=== PATIENT | male | born 1955 | race Caucasian/White ===

== ENCOUNTER 2020-04-08 13:19 | Emergency (ER) | payer BC ==
[~2020-04-08] VITALS: Ht 193 cm; Wt 118.2 kg
[2020-04-08] MEDS ORDERED: epiNEPHrine 1 mg/ml inj SQ STA (13:28)
[2020-04-08] MEDS ORDERED: LORazepam 2 mg/ml vial IV ONE (13:30)
[2020-04-08] MEDS ORDERED: methylPREDNISolone sod succ 125mg/2ml vial IV ONE (13:30)
[2020-04-08] MEDS ORDERED: tranexamic acid 100mg/ml inj. IV ONE (13:30)
[2020-04-08] MEDS ORDERED: famotidine/PF 10 mg/ml inj IV ONE (13:30)
[2020-04-08] MEDS ORDERED: normal saline 1000ML IV soln IV ONE (13:30)
[2020-04-08 13:46] LABS: BASOPHILS # (AUTO) 0.1 X10'3 (0-0.2); BASOPHILS % (AUTO) 0.5 % (0-1); EOSINOPHILS # (AUTO) 0.1 X10'3 (0-0.9); EOSINOPHILS % (AUTO) 0.9 % (0-6); HEMATOCRIT 48.7 % (42.0-52.0); HEMOGLOBIN 16.4 g/dl (14.0-17.9); LYMPHOCYTES # (AUTO) 3.9 X10'3 (1.1-4.8); LYMPHOCYTES % (AUTO) 25.4 % (21-51); MEAN CORPUSCULAR HEMOGLOBIN 30.3 PG (27.0-31.0); MEAN CORPUSCULAR HGB CONC 33.7 g/dL (33.0-36.5); MEAN CORPUSCULAR VOLUME 89.8 FL (78-98); MEAN PLATELET VOLUME 7.5 FL (7.4-10.4); MONOCYTES # (AUTO) 0.9 X10'3 (0-0.9); MONOCYTES % (AUTO) 5.7 % (2-12); NEUTROPHILS # (AUTO) 10.4 X10'3 (1.8-7.7); NEUTROPHILS % (AUTO) 67.5 % (42-75); PLATELET COUNT 215 X10'3 (140-440); RED BLOOD COUNT 5.42 X10'6 (4.70-6.10); RED CELL DISTRIBUTION WIDTH 13.5 % (11.5-14.5); WHITE BLOOD COUNT 15.5 X10'3 (4.5-11.0)
[2020-04-08] MEDS: diphenhydrAMINE 50 mg/ml inj IV ONE ×2 (13:49→14:37)
[2020-04-08 13:57] LABS: ALANINE AMINOTRANSFERASE 45 U/L (12-78); ALBUMIN 4.1 G/DL (3.4-5.0); ALBUMIN/GLOBULIN RATIO 1.1 (1.1-1.5); ALKALINE PHOSPHATASE 83 IU/L (46-116); ANION GAP 13 (8-16); ASPARTATE AMINO TRANSFERASE 29 U/L (10-37); BILIRUBIN,TOTAL 0.5 MG/DL (0.1-1.0); BLOOD UREA NITROGEN 20 MG/DL (7-18); BUN/CREATININE RATIO 15.4 (5.4-32.0); CALCIUM 9.7 MG/DL (8.5-10.1); CHLORIDE 102 MMOL/L (99-107); GLUCOSE 203 MG/DL (70-104); POTASSIUM 3.4 MMOL/L (3.5-5.1); SODIUM 138 MMOL/L (135-145); TOTAL CARBON DIOXIDE 23.3 MMOL/L (24-32); TOTAL PROTEIN 7.7 G/DL (6.4-8.2); eGFR 56 ML/MIN
[2020-04-08 14:33] VITALS: BP 121/78
--- NOTE | 2020-04-08 14:37 | NUR ---
Patient is resting comfortably in bed with no distress.
--- NOTE | 2020-04-08 14:40 | NUR ---
renanryl given per kathleen beltrán request rr wnl, see sigifredo quiñones sob
== END 2020-04-08 15:15 | disposition home or self-care (01) ==
LOC: ER 13:19
DX: T78.3XXA Angioneurotic edema, initial encounter (principal); E78.00 Pure hypercholesterolemia, unspecified; I10 Essential (primary) hypertension; E11.9 Type 2 diabetes mellitus without complications; Z88.8 Allergy status to other drugs, medicaments and biological substances
CPT/HCPCS: 36415; 71045; 80053; 85025; 93005; 96361; 96372; 96374; 96375; 99291; J0171; J1200; J2060; J2930; J3490; J7030